=== PATIENT | female | born 1955 | race Caucasian/White ===

== ENCOUNTER 2019-12-02 13:43 | Day surgery (SDC) | payer MEDICARE, BC ==
[2019-11-28 08:27] VITALS: BMI 37.6
[2019-12-02 14:13] VITALS: RESP 16; TEMP 98.3
[2019-12-02] MEDS ORDERED: LIDOCAINE 1% INJ 10MG/ML (20 ML MDV) SQ ONE (14:23)
--- NOTE | 2019-12-02 15:42 | IR ---
PICC LINE PLACEMENT: HISTORY: Infection requiring long-term antibiotic therapy PROCEDURE: Ultrasound and fluoroscopic guidance of PICC line placement. COMPLICATIONS: None ANESTHESIA: 1. 1% Lidocaine locally. FINDINGS/TECHNIQUE: The procedure was explained to the patient. The risks, complications, benefits and alternatives were discussed and any questions were answered. Informed consent was obtained. The patient was placed supine on the fluoroscopic table and prepped and draped in the usual sterile [facility] ion. Utilizing a 21 gauge needle and sonographic and fluoroscopic guidance, access in the vein was achieved and there is placement of a 0.018 guidewire. The vein is patent. A 4-F sheath was placed o holger the guidewire. The guidewire and dilator were removed and a 4-F. PICC line was placed through th e sheath with the tip at the level of the SVC. The sheath was removed, the catheter was flushed and sutured into position. The patient was stable throughout the procedure and remained stable upon disc harge from the Department of Radiology. The vein puncture was patent under ultrasound. A joseph scale image was obtained to document patency of the vein punctured. All elements of the maximal barrier technique were utilized. FLUOROSCOPY TIME: 0.1 minutes and one image submitted IMPRESSION: Successful PICC line placement under ultrasound and fluoroscopic guidance.
[2019-12-02 18:34] VITALS: BP 145/71; PULSE 81
== END 2019-12-02 15:28 | disposition home or self-care (01) ==
LOC: CATHCVL 13:43
PROVIDERS: ATTEND Radiology Diagnostic Radiology
DX: Z45.2 Encounter for adjustment and management of vascular access device (principal); M86.8X4 Other osteomyelitis, hand; S60.429A Blister (nonthermal) of unspecified finger, initial encounter; G43.909 Migraine, unspecified, not intractable, without status migrainosus; F41.9 Anxiety disorder, unspecified; Z86.718 Personal history of other venous thrombosis and embolism; F32.9 Major depressive disorder, single episode, unspecified; E78.5 Hyperlipidemia, unspecified; E03.9 Hypothyroidism, unspecified; Z79.899 Other long term (current) drug therapy; Z79.2 Long term (current) use of antibiotics; X58.XXXA Exposure to other specified factors, initial encounter
CPT/HCPCS: 36573; C1751; C1769; J2001

== ENCOUNTER → 2024-04-15 | Outpatient (CLI) | payer MEDICARE, BC ==
--- NOTE | 2024-04-15 12:59 | XR ---
EXAMINATION TYPE: XR sacroiliac joint comp BILAT DATE OF EXAM: 04/15/2024 12:32 PM CLINICAL INDICATION:Female, 68 years old with history of M46.1 SACROILIITIS, NOT ELSEWHERE CLASSIFIED ; H COMPARISON: None TECHNIQUE: The sacroiliac joints were examined in a frontal and lateral and oblique projections. FINDINGS: There is no evidence of fracture or dislocation. There is no soft tissue abnormality. Dege neration changes of the sacroiliac joints with mild reformation. No abnormal calcifications are prese nt. Multilevel degenerative changes of the lower spine. IMPRESSION: 1. No acute osseous pathology. 2. Mild bilateral sacroiliac joint degeneration.
== END | disposition home or self-care (01) ==
LOC: RADXRMAIN 12:15
PROVIDERS: ATTEND Psychiatry & Neurology Neurology
DX: M53.3 Sacrococcygeal disorders, not elsewhere classified (principal)
CPT/HCPCS: 72202

== ENCOUNTER 2024-07-02 12:08 | Emergency (ER) | payer BC, MEDICARE ==
[2024-07-02 12:23] VITALS: RESP 18
--- NOTE | 2024-07-02 13:07 | ED ---
General Adult HPI - General Chief complaint: Extremity Injury, Lower Stated complaint: hurt tailbone Time Seen by Provider: 07/02/24 12:20 Source: patient, RN notes reviewed, old records reviewed Mode of arrival: ambulatory Limitations: no limitations - History of Present Illness Initial comments: This is a 69-year-old female who presents to the emergency department stating she fell off the bed 1 week ago. Patient states she landed on her tailbone. Patient states she still has pain in the tailbone and her right buttocks. Patient denies any anterior pelvis pain or hip pain. Patient has any other extremity pain or any other issues. Patient denies any numbness or weakness - Related Data Home Medications Medication Instructions Recorded Confirmed Amitriptyline HCl [Elavil] 50 mg PO HS 11/28/19 12/02/19 Aspirin 325 mg PO DAILY PRN 11/28/19 11/28/19 Atorvastatin Calcium [Lipitor] 20 mg PO HS 11/28/19 12/02/19 SUMAtriptan succinate [Imitrex] 100 mg PO DIRECTED PRN 11/28/19 12/02/19 Venlafaxine HCl [Effexor] 225 mg PO DAILY 11/28/19 12/02/19 Previous Rx's Medication Instructions Recorded Ketorolac [Toradol] 10 mg PO Q8HR #15 tab 07/02/24 Allergies Allergy/AdvReac Type Severity Reaction Status Date / Time No Known Allergies Allergy Verified 07/02/24 12:23 Review of Systems ROS Statement: Those systems with pertinent positive or pertinent negative responses have been documented in the HPI. ROS Other: All systems not noted in ROS Statement are negative. Past Medical History Past Medical History: Asthma, Hyperlipidemia, Skin Disorder Additional Past Medical History / Comment(s): migraines, asthma as child, blood clot in arm or leg(not sure which) after shoulder surgery, osteomyalitis left middle finger, eczema, History of Any Multi-Drug Resistant Organisms: None Reported Past Surgical History: Breast Surgery, Orthopedic Surgery Additional Past Surgical History / Comment(s): rt shoulder arthroscopy, ORIF rt ankle, cyst removed from rt breast Past Anesthesia/Blood Transfusion Reactions: No Reported Reaction Past Psychological History: Depression Smoking Status: Former smoker Past Alcohol Use History: None Reported Past Drug Use History: None Reported - Past Family History Mother Family Medical History: No Reported History General Exam - General Exam Comments Initial Comments: GENERAL: Patient is well-developed and well-nourished. Patient is nontoxic and well- hydrated and is in mild distress. ENT: Neck is soft and supple. No significant lymphadenopathy is noted. Oropharynx is clear. Moist mucous membranes. Neck has full range of motion without eliciting any pain. EYES: The sclera were anicteric and conjunctiva were pink and moist. Extraocular movements were intact and pupils were equal round and reactive to light. Eyelids were unremarkable. PULMONARY: Unlabored respirations. Good breath sounds bilaterally. No audible rales rhonchi or wheezing was noted. CARDIOVASCULAR: There is a regular rate and rhythm without any murmurs gallops or rubs. ABDOMEN: Soft and nontender with normal bowel sounds. SKIN: Skin is clear with no lesions or rashes and otherwise unremarkable. NEUROLOGIC: Patient is alert and oriented x3. Cranial nerves II through XII are grossly intact. Motor and sensory are also intact. Normal speech, volume and content. Symmetrical smile. MUSCULOSKELETAL: Normal extremities with adequate strength and full range of motion. Patient has some mild tenderness of the tailbone and right buttocks region. LYMPHATICS: No significant lymphadenopathy is noted PSYCHIATRIC: Normal psychiatric evaluation. Limitations: no limitations Course Vital Signs 07/02/24 12:20 Temperature 98.1 F Pulse Rate 53 L Respiratory 18 Rate Blood Pressure 139/72 O2 Sat by Pulse 96 Oximetry Medical Decision Making - Medical Decision Making Was pt. sent in by a medical professional or institution (, PA, GLOVE BOARDER, urgent care, hospital, or assisted...) When possible be specific @ -No Did you speak to anyone other than the patient for history (EMS, parent, family, police, friend...)? What history was obtained from this source @ -No Did you review nursing and triage notes (agree or disagree)? Why? @ -I reviewed and agree with nursing and triage notes Were old charts reviewed (outside hosp., previous admission, EMS record, old EKG, old radiological studies, urgent care reports/EKG's, assisted records)? Report findings @ -No old charts were reviewed Differential Diagnosis? @ -Differential musculoskeletal EKG interpreted by me (3pts min.). @ -As above X-rays interpreted by me (1pt min.). @ -Lumbosacral spine shows no acute abnormality sacrum coccyx x-ray shows no acute abnormality CT interpreted by me (1pt min.). @ -None done U/S interpreted by me (1pt. min.). @ -None done What testing was considered but not performed or refused? (CT, X-rays, U/S, l abs)? Why? @ -None What meds were considered but not given or refused? Why? @ -None Did you discuss the management of the patient with other professionals (professionals i.e. , PA, GLOVE BOARDER, lab, RT, psych nurse, social services specialist, jewel bearing broacher, teacher, medical scientific officer, case packer and sealer)? Give summary @ -No Was smoking cessation discussed for >3mins.? @ -No Was critical care preformed (if so, how long)? @ -No Were there social determinants of health that impacted care today? How? (Homelessness, low income, unemployed, alcoholism, drug addiction, transportation, low edu. Level, literacy, decrease access to med. care, senior care, rehab)? @ -No Was there de-escalation of care discussed even if they declined (Discuss DNR or withdrawal of care, Hospice)? DNR status @ -No What co-morbidities impacted this encounter? (DM, HTN, Smoking, COPD, CAD, Cancer, CVA, ARF, Chemo, Hep., AIDS, mental health diagnosis, sleep apnea, morbid obesity)? @ -None Was patient admitted / discharged? Hospital course, mention meds given and route, prescriptions, significant lab abnormalities, going to OR and other pertinent info. @ -Patient received a Toradol shot in the emergency department x-rays are normal patient will be discharged home on Toradol and given some Tylenol with codeine for the evening Undiagnosed new problem with uncertain prognosis? @ -No Drug Therapy requiring intensive monitoring for toxicity (Heparin, Nitro, Insulin, Cardizem)? @ -No Were any procedures done? @ -No Diagnosis/symptom? @ -Sciatica Acute, or Chronic, or Acute on Chronic? @ -Default Uncomplicated (without systemic symptoms) or Complicated (systemic symptoms)? @ -Uncomplicated Side effects of treatment? @ -No Exacerbation, Progression, or Severe Exacerbation? @ -No Poses a threat to life or bodily function? How? (Chest pain, [place], [place], pneumonia, PE, COPD, DKA, ARF, appy, cholecystitis, CVA, Diverticulitis, Homicidal, Suicidal, threat to staff... and all critical care pts) @ -No Disposition Clinical Impression: Sciatica Disposition: HOME SELF-CARE Condition: Good Instructions (If sedation given, give patient instructions): Sciatica (ED) Prescriptions: Ketorolac [Toradol] 10 mg PO Q8HR #15 tab Is patient prescribed a controlled substance at d/c from ED?: No Referrals: Vladimir Adan MD [Primary Care Provider] - 1-2 days Time of Disposition: 13:51
[2024-07-02] MEDS: KETOROLAC 15 MG/ML 1 ML VIAL IM STA (13:27)
--- NOTE | 2024-07-02 13:33 | XR ---
EXAM TYPE: LUMBAR SPINE X RAY SERIES COMPARISON: NONE HISTORY: Pain TECHNIQUE: 4 views are submitted. FINDINGS: Alignment is anatomic. The pedicles are intact. The transverse processes are intact. There is mult ilevel moderate to severe degenerative disc disease and facet arthropathy with grade 1 anterolisthesi s L3-L4. Osteopenic changes and scoliotic curvature. IMPRESSION: 1. Multilevel moderate to severe degenerative disc disease. No compression deformities identified.
--- NOTE | 2024-07-02 13:34 | XR ---
EXAMINATION TYPE: XR sacrum coccyx DATE OF EXAM: 07/02/2024 COMPARISON: NONE HISTORY: Pain Three views are submitted. Sacrum is intact. SI joints are symmetric. Coccyx appears to be intact. Visualized pelvic structures intact. Partial sacralization of the lower lumbar segment with degene rative disc disease lower lumbar spine. Sacral struts are intact. There is bilateral SI joint arthrop athy. IMPRESSION: 1. No acute fracture. 2. Bilateral SI joint arthropathy 3. Severe facet arthropathy and degenerative changes lower lumbar spine.
[2024-07-02] MEDS: KETOROLAC 15 MG/ML 1 ML VIAL IVP STA (14:00)
[2024-07-02] MEDS: ACET/COD 300 MG/30 MG STARTER PACK 6 TAB BTL PO STA (14:03)
[2024-07-02 14:09] VITALS: BP 120/55; PULSE 60; TEMP 97.8
== END 2024-07-02 14:16 | disposition home or self-care (01) ==
LOC: EC 12:08
CPT/HCPCS: 72110; 72220; 96372; 99283

== ENCOUNTER 2024-11-05 15:07 | Observation (INO) | payer MEDICARE ==
--- NOTE | 2024-11-05 15:38 | ED ---
SOB HPI - General Source: patient, RN notes reviewed Mode of arrival: ambulatory Limitations: no limitations <Melissa Marte - Last Filed: 11/05/24 15:38> - General Source: patient, RN notes reviewed, old records reviewed Mode of arrival: ambulatory Limitations: no limitations - History of Present Illness MD Complaint: shortness of breath, cough, chest pain, pain with inspiration -: days(s) Severity: moderate Severity scale (1-10): 6 Quality: throbbing, sharp, stabbing Consistency: intermittent Improves With: nothing Worsens With: nothing Context: recent URI, recent illness Associated Symptoms: chest pain, pain with inspiration, cough, sputum production Treatments Prior to Arrival: none <Macho Matias - Last Filed: 11/09/24 21:55> - General Chief Complaint: Shortness of Breath Stated Complaint: SOB, congestion Time Seen by Provider: 11/05/24 15:37 - History of Present Illness Initial Comments: Quick note: 69-year-old female presented to ER for evaluation of sore throat, cough and congestion. She states her symptoms started on . Patient reports she will cough so hard it makes her incontinent. Patient was seen at [facility] last night and diagnosed with a viral illness and started on amoxicillin. Patient endorses shortness of breath and states it feels like there is an elephant on her chest. No radiation of chest discomfort. No known cardiac history. Fever starting today. (Melissa Marte) This is a 69-year-old female to the ER for cough sore throat runny nose congestion recent COVID test was negative. Patient has heaviness of the chest and persistent chest pain with out feeling well shortness of breath (Macho Matias) - Related Data Home Medications Medication Instructions Recorded Confirmed Atorvastatin Calcium [Lipitor] 20 mg PO HS 11/28/19 11/05/24 SUMAtriptan succinate [Imitrex] 100 mg PO BID PRN 11/28/19 11/05/24 Sertraline [Zoloft] 50 mg PO DAILY 11/05/24 11/05/24 Previous Rx's Medication Instructions Recorded Benzonatate [Tessalon Perles] 200 mg PO TID PRN #21 cap 11/08/24 predniSONE [Deltasone] 20 mg PO DIRECTED #9 tab 11/08/24 Allergies Allergy/AdvReac Type Severity Reaction Status Date / Time No Known Allergies Allergy Verified 11/05/24 19:25 Review of Systems ROS Other: All systems not noted in ROS Statement are negative. <Melissa Marte - Last Filed: 11/05/24 15:38> ROS Other: All systems not noted in ROS Statement are negative. <Macho Matias - Last Filed: 11/09/24 21:55> ROS Statement: Those systems with pertinent positive or pertinent negative responses have been documented in the HPI. Past Medical History Past Medical History: Asthma, Hyperlipidemia, Skin Disorder Additional Past Medical History / Comment(s): migraines, asthma as child, blood clot in arm or leg(not sure which) after shoulder surgery, osteomyalitis left middle finger, eczema, History of Any Multi-Drug Resistant Organisms: None Reported Past Surgical History: Breast Surgery, Orthopedic Surgery Additional Past Surgical History / Comment(s): rt shoulder arthroscopy, ORIF rt ankle, cyst removed from rt breast Past Anesthesia/Blood Transfusion Reactions: No Reported Reaction Past Psychological History: Depression Smoking Status: Former smoker Past Alcohol Use History: None Reported Past Drug Use History: None Reported - Past Family History Mother Family Medical History: No Reported History <Melissa Marte - Last Filed: 11/05/24 15:38> General Exam Limitations: no limitations <Melissa Marte - Last Filed: 11/05/24 15:38> General appearance: alert, in no apparent distress Head exam: Present: atraumatic, normocephalic, normal inspection Eye exam: Present: normal appearance, PERRL, EOMI. Absent: scleral icterus, conjunctival injection, periorbital swelling ENT exam: Present: normal exam, mucous membranes moist Neck exam: Present: normal inspection. Absent: tenderness, meningismus, lymphadenopathy Respiratory exam: Present: normal lung sounds bilaterally. Absent: respiratory distress, wheezes, rales, rhonchi, stridor Cardiovascular Exam: Present: regular rate, normal rhythm, normal heart sounds. Absent: systolic murmur, diastolic murmur, rubs, gallop, clicks GI/Abdominal exam: Present: soft, normal bowel sounds. Absent: distended, tend erness, guarding, rebound, rigid Extremities exam: Present: normal inspection, full ROM, normal capillary refill. Absent: tenderness, pedal edema, joint swelling, calf tenderness Back exam: Present: normal inspection Neurological exam: Present: alert, oriented X3, CN II-XII intact Psychiatric exam: Present: normal affect, normal mood Skin exam: Present: warm, dry, intact, normal color. Absent: rash <Macho Matias - Last Filed: 11/09/24 21:55> - General Exam Comments Initial Comments: Visual Physical Exam Vital signs reviewed General: Well-appearing, nontoxic, no acute distress. Head: Normocephalic, atraumatic Eyes: PERRLA, EOMI ENT: Airway patent Chest: Nonlabored breathing Skin: No visual rash, normal skin tone Neuro: Alert and oriented 3 Musculoskeletal: No gross abnormalities (Melissa Marte) Course <Macho Matias - Filed: 11/09/24 21:55> Vital Signs 11/05/24 11/05/24 11/05/24 15:16 17:44 17:56 Temperature 100.7 F H Pulse Rate 90 67 70 Respiratory 20 Rate Blood Pressure 134/76 O2 Sat by Pulse 95 Oximetry 11/05/24 11/05/24 11/05/24 18:29 19:19 20:00 Temperature 98.2 F Pulse Rate 74 64 77 Respiratory 20 18 20 Rate Blood Pressure 127/77 120/59 131/71 O2 Sat by Pulse 98 92 L 93 L Oximetry 11/05/24 11/05/24 11/05/24 20:16 20:31 22:00 Temperature Pulse Rate 64 66 64 Respiratory 20 Rate Blood Pressure 117/57 O2 Sat by Pulse 91 L Oximetry 11/05/24 11/05/24 22:08 23:21 Temperature 97.7 F Pulse Rate 58 L Respiratory 18 Rate Blood Pressure 100/62 O2 Sat by Pulse 95 97 Oximetry - Reevaluation(s) Reevaluation #1: 11/05/24 18:12 Medical records reviewed (Macho Matias) Reevaluation #2: 11/05/24 18:12 Patient states she feels lousy feels terrible does not feel comfortable with discharge (Macho Matias) Reevaluation #3: 11/05/24 18:12 Patient informed of results and questions answered (Macho Matias) Reevaluation #4: Was pt. sent in by a medical professional or institution (, [facility], [employer], urgent care, hospital, or senior living...) When possible be specific @ -no Did you speak to anyone other than the patient for history (EMS, parent, family, police, friend...)? What history was obtained from this source @ -no Did you review nursing and triage notes (agree or disagree)? Why? @ -agree Are old charts reviewed (outside hosp., previous admission, EMS record, old EKG, old radiological studies, urgent care reports/EKG's, senior living records)? Report findings @ -yes Differential Diagnosis (chest pain, altered mental status, abdominal pain women, abdominal pain men, vaginal bleeding, weakness, fever, dyspnea, syncope, headache, dizziness, GI bleed, back pain, seizure, CVA, palpatations, mental health, musculoskeletal)? @ -prior EKG interpreted by me (3pts min.). @ -yes X-rays interpreted by me (1pt min.). @ -yes negative for acute disease CT interpreted by me (1pt min.). @ -no U/S interpreted by me (1pt. min.). @ -no What testing was considered but not performed or refused? (CT, X-rays, U/S, labs)? Why? @ -none What meds were considered but not given or refused? Why? @ -none Did you discuss the management of the patient with other professionals ( professionals i.e. [facility], [employer]IV[employer], lab, RT, psych nurse, social scientist, supervisor [employer]her dietary service, teacher, loss prevention officer, case folder)? Give summary @ -no Was smoking cessation discussed for >3mins.? @ -no Was critical care preformed (if so, how long)? @ -no Were there social determinants of health that impacted care today? How? (Homelessness, low income, unemployed, alcoholism, drug addiction, transportation, low edu. Level, literacy, decrease access to med. care, halfway, rehab)? @ -none Was there de-escalation of care discussed even if they declined (Discuss DNR or withdrawal of care, Hospice)? DNR status @ -no What co-morbidities impacted this encounter? (DM, HTN, Smoking, COPD, CAD, Cancer, CVA, ARF, Chemo, Hep., AIDS, mental health diagnosis, sleep apnea, morbid obesity)? @ -none Was patient admitted / discharged? Hospital course, mention meds given and route, prescriptions, significant lab abnormalities, going to OR and other pertinent info. @ - 69 female will be admitted for RSV patient is positive for RSV with COPD exacerbation here in the ER, symptoms are persistent with shortness of breath and chest pain here will admit for supportive care Admitted Undiagnosed new problem with uncertain prognosis? @ -no Drug Therapy requiring intensive monitoring for toxicity (Heparin, Nitro, Insuli n, Cardizem)? @ -no Were any procedures done? @ -no Diagnosis/symptom? @ -RSV coupled with COPD shortness of breath Acute, or Chronic, or Acute on Chronic? @ -Acute Uncomplicated (without systemic symptoms) or Complicated (systemic symptoms)? @ -Complicated Side effects of treatment? @ -no Exacerbation, Progression, or Severe Exacerbation? @ -exacerbation Poses a threat to life or bodily function? How? (Chest pain, USA, CT, pneumonia, PE, COPD, DKA, ARF, appy, cholecystitis, CVA, Diverticulitis, Homicidal, Suicidal, threat to staff... and all critical care pts) @ -yes extremes of age (Macho Matias) Reevaluation #5: Differential Dyspnea: Coronary syndrome, arrhythmia, tamponade, asthma, COPD, pulmonary embolism, pneumonia, pneumothorax, pulmonary effusion, anaphylaxis, diabetic ketoacidosis, flailed chest, pulmonary contusion, diaphragmatic rupture, anemia, neuromuscular, this is not meant to be an all-inclusive list. Differential Fever: Pneumonia, viral URI, endocarditis, myocarditis, pericarditis, otitis, sinusitis, peritonsillar Abscess, retropharyngeal Abscess, epiglottitis, peritonitis, appendicitis, Johana cystitis, diverticulitis, hepatitis, colitis, UTI, PID, TOA, pyelonephritis, prostatitis, epididymitis, meningitis, encephalitis, pulmonary embolism, CVA, thyroid storm, pancreatitis, adrenal crisis, cavernous sinus thrombosis, this is not meant to be an all-inclusive list. (Macho Matias) - Consultations Consultation #1: Spoke with Dr. Loco crawford to admit (Macho Matias) Medical Decision Making <Melissa Marte - Last Filed: 11/05/24 15:38> - Lab Data Result diagrams: 11/08/24 05:47 11/08/24 05:47 - EKG Data -: EKG Interpreted by Me (EKG is sinus 79 SC 132 QRS 83 QTc 381) - Radiology Data Radiology results: report reviewed (Chest x-ray is negative for acute disease), image reviewed <Macho Matias - Last Filed: 11/09/24 21:55> - Medical Decision Making I performed the quick note portion of this chart. Electronically signed by Melissa Marte PA-C (Melissa Marte) 69 female will be admitted for RSV patient is positive for RSV with COPD exacerbation here in the ER, symptoms are persistent with shortness of breath and chest pain here will admit for supportive care (Macho Matias) - Lab Data Lab Results 11/05/24 11/05/24 11/05/24 Range/Units 15:37 17:20 17:20 WBC 5.5 (3.8-10.6) k/uL RBC 4.36 (3.80-5.40) m/uL Hgb 13.1 (11.4-16.0) gm/dL Hct 40.1 (34.0-46.0) % MCV 92.0 (80.0-100.0) fL MCH 30.1 (25.0-35.0) pg MCHC 32.7 (31.0-37.0) g/dL RDW 13.2 (11.5-15.5) % Plt Count 107 L (150-450) k/uL MPV 8.9 Neutrophils % 63 % Lymphocytes % 15 % Monocytes % 10 % Eosinophils % 7 % Basophils % 0 % Neutrophils # 3.5 (1.3-7.7) k/uL Lymphocytes # 0.9 L (1.0-4.8) k/uL Monocytes # 0.6 (0-1.0) k/uL Eosinophils # 0.4 (0-0.7) k/uL Basophils # 0.0 (0-0.2) k/uL PT 10.2 (10.0-12.5) sec INR 0.9 (<1.2) APTT 24.4 (22.0-30.0) sec Sodium (137-145) mmol/L Potassium (3.5-5.1) mmol/L Chloride (98-107) mmol/L Carbon Dioxide (22-30) mmol/L Anion Gap mmol/L BUN (7-17) mg/dL Creatinine (0.52-1.04) mg/dL Est GFR (CKD-EPI)AfAm (>60 ml/min/1.73 sqM) Est GFR (CKD-EPI)NonAf (>60 ml/min/1.73 sqM) Glucose (74-99) mg/dL Plasma Lactic Acid Yamil (0.7-2.0) mmol/L Calcium (8.4-10.2) mg/dL Magnesium (1.6-2.3) mg/dL Total Bilirubin (0.2-1.3) mg/dL AST (14-36) U/L ALT (4-34) U/L Alkaline Phosphatase (38-126) U/L Troponin I (0.000-0.034) ng/mL NT-Pro-B Natriuret Pep pg/mL Total Protein (6.3-8.2) g/dL Albumin (3.5-5.0) g/dL Influenza Type A (PCR) Not Detected (Not Detectd) Influenza Type B (PCR) Not Detected (Not Detectd) RSV (PCR) Detected A (Not Detectd) SARS-CoV-2 (PCR) Not Detected (Not Detectd) 11/05/24 11/05/24 11/05/24 Range/Units 17:20 17:20 17:20 WBC (3.8-10.6) k/uL RBC (3.80-5.40) m/uL Hgb (11.4-16.0) gm/dL Hct (34.0-46.0) % MCV (80.0-100.0) fL MCH (25.0-35.0) pg MCHC (31.0-37.0) g/dL RDW (11.5-15.5) % Plt Count (150-450) k/uL MPV Neutrophils % % Lymphocytes % % Monocytes % % Eosinophils % % Basophils % % Neutrophils # (1.3-7.7) k/uL Lymphocytes # (1.0-4.8) k/uL Monocytes # (0-1.0) k/uL Eosinophils # (0-0.7) k/uL Basophils # (0-0.2) k/uL PT (10.0-12.5) sec INR (<1.2) APTT (22.0-30.0) sec Sodium 138 (137-145) mmol/L Potassium 4.3 (3.5-5.1) mmol/L Chloride 108 H (98-107) mmol/L Carbon Dioxide 24 (22-30) mmol/L Anion Gap 6 mmol/L BUN 19 H (7-17) mg/dL Creatinine 0.71 (0.52-1.04) mg/dL Est GFR (CKD-EPI)AfAm >90 (>60 ml/min/1.73 sqM) Est GFR (CKD-EPI)NonAf 86 (>60 ml/min/1.73 sqM) Glucose 91 (74-99) mg/dL Plasma Lactic Acid Yamil 0.6 L (0.7-2.0) mmol/L Calcium 8.1 L (8.4-10.2) mg/dL Magnesium 1.8 (1.6-2.3) mg/dL Total Bilirubin 0.2 (0.2-1.3) mg/dL AST 35 (14-36) U/L ALT 25 (4-34) U/L Alkaline Phosphatase 105 (38-126) U/L Troponin I <0.012 (0.000-0.034) ng/mL NT-Pro-B Natriuret Pep 194 pg/mL Total Protein 5.8 L (6.3-8.2) g/dL Albumin 3.3 L (3.5-5.0) g/dL Influenza Type A (PCR) (Not Detectd) Influenza Type B (PCR) (Not Detectd) RSV (PCR) (Not Detectd) SARS-CoV-2 (PCR) (Not Detectd) Disposition <Melissa Marte - Last Filed: 11/05/24 15:38> Is patient prescribed a controlled substance at d/c from ED?: No Time of Disposition: 18:00 <Macho Matias - Last Filed: 11/09/24 21:55> Clinical Impression: Acute exacerbation of chronic obstructive pulmonary disease, RSV (acute bronchiolitis due to respiratory syncytial virus) Disposition: ADMITTED IP TO THIS HOSP Condition: Fair
--- NOTE | 2024-11-05 16:32 | XR ---
EXAMINATION TYPE: XR chest 2V DATE OF EXAM: 11/05/2024 4:27 PM COMPARISON: Chest radiographs from 11/12/2011 CLINICAL INDICATION: Female, 69 years old with history of sob/cough; [facility] TECHNIQUE: XR chest 2V Frontal and lateral views of the chest. FINDINGS: Lungs/Pleura: There is no evidence of pleural effusion, focal consolidation, or pneumothorax. Pulmonary vascularity: Unremarkable. Heart/mediastinum: Cardiomediastinal silhouette is unremarkable. Musculoskeletal: No acute osseous pathology. IMPRESSION: No acute cardiopulmonary disease/process. [facility], , 11/05/2024 4:30 PM
[2024-11-05] MEDS: DEXAMETHASONE SOD PHOSPHATE 10 MG/ML 1 ML VIAL IVP STA (16:42)
[2024-11-05] MEDS: KETOROLAC 15 MG/ML 1 ML VIAL IVP STA (16:43)
[2024-11-05] MEDS: IBUPROFEN 600 MG TAB PO STA (16:43)
[2024-11-05] MEDS: SODIUM CHLORIDE 0.9% 500 ML 500 ML IV STA (16:44)
[2024-11-05] MEDS: SODIUM CHLORIDE 0.9% 1,000 ML IV STA (16:44)
[2024-11-05] MEDS: ACETAMINOPHEN TAB 325 MG TAB PO STA (16:44)
[2024-11-05 17:34] LABS: Basophils % (A) 0 %; Eosinophils # (A) 0.4 k/uL (0-0.7); Eosinophils % (A) 7 %; HCT 40.1 % (34.0-46.0); HGB 13.1 gm/dL (11.4-16.0); Lymphocytes # (A) 0.9 k/uL (1.0-4.8); Lymphocytes % (A) 15 %; MCH 30.1 pg (25.0-35.0); MCHC 32.7 g/dL (31.0-37.0); Mean Platelet Volume 8.9; Monocytes # (A) 0.6 k/uL (0-1.0); Monocytes % (A) 10 %; Neutrophils # (A) 3.5 k/uL (1.3-7.7); Neutrophils % (A) 63 %; Platelet Count 107 k/uL (150-450); RBC 4.36 m/uL (3.80-5.40); RDW 13.2 % (11.5-15.5); WBC 5.5 k/uL (3.8-10.6)
[2024-11-05] MEDS: IPRATROPIUM-ALBUTEROL 3 ML NEB INHALATION STA ×2 (17:42→20:14)
[2024-11-05 17:44] LABS: ALT 25 U/L (4-34); AST 35 U/L (14-36); African American GFR (CKD) >90 (>60 ml/min/1.73 sqM); Albumin 3.3 g/dL (3.5-5.0); Alkaline Phosphatase 105 U/L (38-126); Anion Gap 6 mmol/L; Blood Urea Nitrogen 19 mg/dL (7-17); Calcium 8.1 mg/dL (8.4-10.2); Carbon Dioxide 24 mmol/L (22-30); Chloride 108 mmol/L (98-107); Glucose 91 mg/dL (74-99); Magnesium 1.8 mg/dL (1.6-2.3); Non-African American GFR(CKD) 86 (>60 ml/min/1.73 sqM); Potassium 4.3 mmol/L (3.5-5.1); Sodium 138 mmol/L (137-145); Total Bilirubin 0.2 mg/dL (0.2-1.3); Total Protein 5.8 g/dL (6.3-8.2)
[2024-11-05 17:52] LABS: NT-Pro-B-Type Natriuretic Pept 194 pg/mL
[2024-11-05 17:53] LABS: INR 0.9 (<1.2); Partial Thromboplastin Time 24.4 sec (22.0-30.0); Prothrombin Time 10.2 sec (10.0-12.5)
[2024-11-05] MEDS: ONDANSETRON 4 MG/2 ML VIAL IVP STA (17:54)
[2024-11-05] MEDS ORDERED: ONDANSETRON 4 MG/2 ML VIAL IVP PRN (18:09)
[2024-11-05] MEDS ORDERED: ACETAMINOPHEN TAB 325 MG TAB PO PRN (18:09)
[2024-11-05] MEDS ORDERED: NALOXONE 0.4 MG/ML 1 ML VIAL IV PRN (18:09)
[2024-11-05] MEDS ORDERED: KETOROLAC 15 MG/ML 1 ML VIAL IVP PRN (18:09)
[2024-11-05] MEDS: MORPHINE SULFATE 4 MG/ML SYRINGE IV PRN (18:30)
[2024-11-05] MEDS: SODIUM CHLORIDE 0.9% 1,000 ML IV SCH (19:23)
[2024-11-05 22:39] LABS: Appearance,Urine Clear (Clear); Bilirubin,Urine Negative (Negative); Blood,Urine Trace (Negative); Color,Urine Light Yellow; Glucose,Urine (UA) Negative (Negative); Ketones,Urine Trace (Negative); Leukocyte Esterase,Urine Negative (Negative); Mucus,Urine Rare /hpf; Nitrite,Urine Negative (Negative); PH, Urine 5.5 (5.0-8.0); Protein,Urine Negative (Negative); RBC,Urine 1 /hpf (0-5); Specific Gravity,Urine 1.012 (1.001-1.035); Squamous Epithelial Cell,Urine 1 /hpf (0-4); Urobilinogen,Urine <2.0 mg/dL (<2.0); WBC,Urine 2 /hpf (0-5)
[2024-11-06] MEDS: ALBUTEROL NEBULIZED 2.5 MG/3 ML INHALATION PRN (04:43)
[2024-11-06 08:35] LABS: Basophils # (A) 0.02 X 10*3/uL (0.00-0.10); Basophils % (A) 0.5 %; Eosinophils # (A) 0 X 10*3/uL (0.04-0.35); Eosinophils % (A) 0 %; HCT 38.9 % (37.2-46.3); HGB 12.5 g/dL (12.0-15.0); Lymphocytes # (A) 0.68 X 10*3/uL (0.90-5.00); Lymphocytes % (A) 15.7 %; MCH 29.1 pg (27.0-32.0); MCHC 32.1 g/dL (32.0-37.0); MCV 90.7 FL (80.0-97.0); Mean Platelet Volume 12.3 FL (9.5-12.2); Monocytes # (A) 0.38 X 10*3/uL (0.20-1.00); Monocytes % (A) 8.8 %; NRBC Per 100 WBC 0 X 10*3/uL (0.00-0.01); Neutrophils # (A) 3.24 X 10*3/uL (1.80-7.70); Neutrophils % (A) 74.5 %; Platelet Count 101 X 10*3/uL (140-440); RBC 4.29 X 10*6/uL (4.10-5.20); RDW 13.1 % (11.5-14.5); WBC 4.34 X 10*3/uL (4.50-10.00)
[2024-11-06 08:45] LABS: ALT 23 U/L (8-44); AST 27 U/L (13-35); Albumin 3.4 g/dL (3.8-4.9); Albumin/Globulin Ratio 1.62 Ratio (1.60-3.17); Alkaline Phosphatase 95 U/L (41-126); Blood Urea Nitrogen 18.2 mg/dL (9.0-27.0); Calcium 7.8 mg/dL (8.7-10.3); Carbon Dioxide 21.2 mmol/L (21.6-31.8); Chloride 111 mmol/L (96-109); Globulin 2.1 g/dL (1.6-3.3); Glucose 162 mg/dL (70-110); Magnesium 1.9 mg/dL (1.5-2.4); Phosphorus 3.1 mg/dL (2.4-5.1); Potassium 4.6 mmol/L (3.5-5.5); Sodium 142 mmol/L (135-145); Total Bilirubin <0.2 mg/dL (0.3-1.2); Total Protein 5.5 g/dL (6.2-8.2)
--- NOTE | 2024-11-06 08:47 | P.HPIM ---
History of Present Illness H&P Date: 11/06/24 Chief Complaint: Cough with shortness of breath This is a 69-year-old white female who about 5 days ago started having respiratory congestion. Cough with low-grade fever and pleurisy was noted. Evaluation emergency room did show positive RSV and due to her respiratory dist ress she is appropriately admitted. She has been taking breathing treatments and having better relief. We will probably start some steroid for appropriate relief of her pleurisy. No previous history of RSV no immunization against RSV COVID testing was negative. Review of Systems Eyes: denies blurred vision, denies pain Ears, nose, mouth and throat: Denies headache, Denies sore throat Cardiovascular: Denies chest pain, Denies shortness of breath Respiratory: Reports as per HPI, Reports congestion, Reports cough Gastrointestinal: Denies abdominal pain, Denies diarrhea, Denies nausea, Denies vomiting Past Medical History Past Medical History: Asthma, Hyperlipidemia Additional Past Medical History / Comment(s): Migraines, asthma as child, blood clot in arm or leg(not sure which) after shoulder surgery, osteomyalitis left middle finger, insomnia, Depression History of Any Multi-Drug Resistant Organisms: None Reported Past Surgical History: Breast Surgery, Orthopedic Surgery Additional Past Surgical History / Comment(s): rt shoulder arthroscopy, ORIF rt ankle, cyst removed from rt breast Past Anesthesia/Blood Transfusion Reactions: No Reported Reaction Smoking Status: Former smoker - Past Family History Mother Family Medical History: No Reported History Medications and Allergies Home Medications Medication Instructions Recorded Confirmed Type Atorvastatin Calcium [Lipitor] 20 mg PO HS 11/28/19 11/05/24 History SUMAtriptan succinate [Imitrex] 100 mg PO BID PRN 11/28/19 11/05/24 History Sertraline [Zoloft] 50 mg PO DAILY 11/05/24 11/05/24 History Allergies Allergy/AdvReac Type Severity Reaction Status Date / Time No Known Allergies Allergy Verified 11/05/24 19:25 Physical Exam Vitals: Vital Signs Temp Pulse Pulse Resp BP BP Pulse Ox 11/06/24 04:50 69 11/06/24 04:44 69 11/06/24 02:00 98.2 F 74 17 127/74 97 11/05/24 23:21 97.7 F 58 L 18 100/62 97 11/05/24 22:08 95 11/05/24 22:00 64 20 117/57 91 L 11/05/24 20:31 66 11/05/24 20:16 64 11/05/24 20:00 77 20 131/71 93 L 11/05/24 19:19 98.2 F 64 18 120/59 92 L 11/05/24 18:29 74 20 127/77 98 11/05/24 17:56 70 11/05/24 17:44 67 11/05/24 15:16 100.7 F H 90 20 134/76 95 Intake and Output 11/05/24 11/06/24 11/06/24 22:59 06:59 14:59 Other: # Voids 2 Weight 90.718 kg - Constitutional General appearance: no acute distress - EENT Eyes: EOMI - Neck Neck: no lymphadenopathy - Respiratory Respiratory: bilateral: diminished - Cardiovascular Rhythm: regular Heart sounds: normal: S1, S2 Abnormal Heart Sounds: no S3 Gallop - Gastrointestinal General gastrointestinal: soft - Integumentary Integumentary: no cellulitis - Musculoskeletal Musculoskeletal: gait normal Results CBC & Chem 7: 11/06/24 04:22 11/05/24 17:20 Labs: Abnormal Lab Results - Last 24 Hours (Table) 11/05/24 11/05/24 11/05/24 Range/Units 15:37 17:20 17:20 WBC (4.50-10.00) X 10*3/uL Plt Count 107 L (150-450) k/uL MPV (9.5-12.2) FL Lymphocytes # 0.9 L (1.0-4.8) k/uL Eosinophils # (0.04-0.35) X 10*3/uL Chloride 108 H (98-107) mmol/L BUN 19 H (7-17) mg/dL Plasma Lactic Acid Yamil (0.7-2.0) mmol/L Calcium 8.1 L (8.4-10.2) mg/dL Total Protein 5.8 L (6.3-8.2) g/dL Albumin 3.3 L (3.5-5.0) g/dL Urine Ketones (Negative) Urine Blood (Negative) Urine Mucus (None) /hpf RSV (PCR) Detected A (Not Detectd) 11/05/24 11/05/24 11/06/24 Range/Units 17:20 22:08 04:22 WBC 4.34 L (4.50-10.00) X 10*3/uL Plt Count 101 L (150-450) k/uL MPV 12.3 H (9.5-12.2) FL Lymphocytes # 0.68 L (1.0-4.8) k/uL Eosinophils # 0 L (0.04-0.35) X 10*3/uL Chloride (98-107) mmol/L BUN (7-17) mg/dL Plasma Lactic Acid Yamil 0.6 L (0.7-2.0) mmol/L Calcium (8.4-10.2) mg/dL Total Protein (6.3-8.2) g/dL Albumin (3.5-5.0) g/dL Urine Ketones Trace H (Negative) Urine Blood Trace H (Negative) Urine Mucus Rare H (None) /hpf RSV (PCR) (Not Detectd) Thrombosis Risk Factor Assmnt - Choose All That Apply Any of the Below Risk Factors Present?: Yes Each Factor Represents 1 point: Obesity (BMI >25) Other Risk Factors: Yes Each Risk Factor Represents 2 Points: Age 61-74 years Each Risk Factor Represents 3 Points: History of DVT/PE Thrombosis Risk Factor Assessment Total Risk Factor Score: 6 Thrombosis Risk Factor Assessment Level: High Risk Assessment and Plan (1) Acute exacerbation of chronic obstructive pulmonary disease Current Visit: Yes Status: Acute Code(s): J44.1 - CHRONIC OBSTRUCTIVE PULMONARY DISEASE W (ACUTE) EXACERBATION SNOMED Code(s): 875008106 (2) RSV (acute bronchiolitis due to respiratory syncytial virus) Current Visit: Yes Status: Acute Code(s): J21.0 - ACUTE BRONCHIOLITIS DUE TO RESPIRATORY SYNCYTIAL VIRUS SNOMED Code(s): 440338995 Plan: Continue supportive care oxygen supplementation as needed. Reconcile home medications. Solu-Medrol 40 mg IV every 8. Check CBC and CMP in AM. Anticipate discharge in next 24-48 hours. She is a full code.
[2024-11-06] MEDS: methylPREDNISolone SOD SUCCI 40 MG/ML 1 ML VIAL IV SCH (08:50)
[2024-11-06] MEDS: SERTRALINE 50 MG TAB PO SCH (08:50)
[2024-11-06] MEDS: BENZONATATE 100 MG CAP PO PRN (10:47)
[2024-11-06] MEDS: SUMAtriptan succinate 50 MG TAB PO PRN (16:45)
[2024-11-06] MEDS: ATORVASTATIN 20 MG TAB PO SCH (20:19)
[2024-11-06] MEDS: LORazepam 0.5 MG TAB PO PRN (22:18)
--- NOTE | 2024-11-07 09:00 | P.PN ---
Subjective Progress Note Date: 11/07/24 This is a 69-year-old female who tested positive for RSV on admission. Patient reports about 5 days of respiratory congestion along with cough and low-grade fever. Patient is seen this morning getting a breathing treatment sitting on the side of the bed. She is very anxious. She is on room air. Vitals are stable and patient is tolerating diet. Objective - Vital Signs Vital signs: Vital Signs Temp 98.0 F 11/07/24 07:00 Pulse 68 11/07/24 08:34 Resp 20 11/07/24 07:00 BP 149/76 11/07/24 07:00 Pulse Ox 92 L 11/07/24 08:23 FiO2 Intake & Output 11/06/24 11/07/24 11/07/24 18:59 06:59 18:59 Other: # Voids 1 2 - Constitutional General appearance: Present: cooperative, no acute distress - EENT Eyes: Present: PERRLA - Neck Neck: Present: normal ROM. Absent: lymphadenopathy, rigidity - Respiratory Respiratory: bilateral: rhonchi - Cardiovascular Rhythm: regular Heart sounds: normal: S1, S2 - Gastrointestinal General gastrointestinal: Present: soft. Absent: tenderness - Integumentary Integumentary: Present: normal, normal turgor - Psychiatric Psychiatric: Present: A&O x's 3 - Labs CBC & Chem 7: 11/06/24 04:22 11/06/24 04:22 Assessment and Plan (1) Acute exacerbation of chronic obstructive pulmonary disease Current Visit: Yes Status: Acute Code(s): J44.1 - CHRONIC OBSTRUCTIVE PULMO NARY DISEASE W (ACUTE) EXACERBATION SNOMED Code(s): 120306880 (2) RSV (acute bronchiolitis due to respiratory syncytial virus) Current Visit: Yes Status: Acute Code(s): J21.0 - ACUTE BRONCHIOLITIS DUE TO RESPIRATORY SYNCYTIAL VIRUS SNOMED Code(s): 739343163 Plan: Continue breathing treatments and steroids. Check CBC and CMP in the morning. Anticipate discharge in the next 24 to 48 hours. Patient seen and evaluated by nurse practitioner, physician in agreement with plan.
[2024-11-07 09:17] LABS: HCT 39.7 % (37.2-46.3); HGB 12.7 g/dL (12.0-15.0); MCH 29.2 pg (27.0-32.0); MCV 91.3 FL (80.0-97.0); Mean Platelet Volume 12.9 FL (9.5-12.2); NRBC Per 100 WBC 0 X 10*3/uL (0.00-0.01); Platelet Count 81 X 10*3/uL (140-440); RBC 4.35 X 10*6/uL (4.10-5.20); RDW 13.4 % (11.5-14.5); WBC 5.67 X 10*3/uL (4.50-10.00)
[2024-11-07 11:22] LABS: ALT 27 U/L (8-44); AST 34 U/L (13-35); Albumin 3.6 g/dL (3.8-4.9); Alkaline Phosphatase 90 U/L (41-126); Blood Urea Nitrogen 18.9 mg/dL (9.0-27.0); Calcium 8.2 mg/dL (8.7-10.3); Carbon Dioxide 19.8 mmol/L (21.6-31.8); Chloride 114 mmol/L (96-109); Glucose 150 mg/dL (70-110); Potassium 4.6 mmol/L (3.5-5.5); Sodium 144 mmol/L (135-145); Total Bilirubin <0.2 mg/dL (0.3-1.2); Total Protein 5.6 g/dL (6.2-8.2)
[2024-11-08 07:41] VITALS: BP 143/65; PULSE 52; RESP 16; TEMP 98.2
--- NOTE | 2024-11-08 08:38 | P.DS ---
Providers Date of admission: 11/05/24 18:11 Attending physician: Vladimir Adan Primary care physician: Vladimir Adan - Discharge Diagnosis(es) (1) Acute exacerbation of chronic obstructive pulmonary disease Current Visit: Yes Status: Acute (2) RSV (acute bronchiolitis due to respiratory syncytial virus) Current Visit: Yes Status: Acute Hospital Course: This is a discharge summary 69-year-old white female who essentially admitted for RSV bronchiolitis. The patient had a significant adrián course but was given appropriate breathing treatments and steroids. The patient will be discharged on low-dose prednisone and to follow-up with me in about 7 days. The patient is afebrile tolerating diet but uncomfortable due to the lack that she is not home in her own bed. No voiding difficulties and the patient is tolerating diet. Patient Condition at Discharge: Fair Plan - Discharge Summary Discharge Rx Participant: No New Discharge Prescriptions: New predniSONE [Deltasone] 20 mg PO DIRECTED #9 tab Benzonatate [Tessalon Perles] 200 mg PO TID PRN #21 cap PRN Reason: Cough Continue SUMAtriptan succinate [Imitrex] 100 mg PO BID PRN PRN Reason: Migraine Headache Atorvastatin Calcium [Lipitor] 20 mg PO HS Sertraline [Zoloft] 50 mg PO DAILY Discharge Medication List Atorvastatin Calcium [Lipitor] 20 mg PO HS 11/28/19 [History] SUMAtriptan succinate [Imitrex] 100 mg PO BID PRN 11/28/19 [History] Sertraline [Zoloft] 50 mg PO DAILY 11/05/24 [History] Benzonatate [Tessalon Perles] 200 mg PO TID PRN #21 cap 11/08/24 [Rx] predniSONE [Deltasone] 20 mg PO DIRECTED #9 tab 11/08/24 [Rx] Follow up Appointment(s)/Referral(s): Vladimir Adan MD [Primary Care Provider] - 1 Week Discharge Disposition: HOME SELF-CARE
[2024-11-08 09:01] LABS: ALT 90 U/L (8-44); AST 112 U/L (13-35); Albumin 3.1 g/dL (3.8-4.9); Albumin/Globulin Ratio 1.63 Ratio (1.60-3.17); Alkaline Phosphatase 72 U/L (41-126); Blood Urea Nitrogen 20.1 mg/dL (9.0-27.0); Carbon Dioxide 18.8 mmol/L (21.6-31.8); Chloride 114 mmol/L (96-109); Globulin 1.9 g/dL (1.6-3.3); Glucose 106 mg/dL (70-110); Potassium 3.9 mmol/L (3.5-5.5); Sodium 147 mmol/L (135-145); Total Bilirubin 0.2 mg/dL (0.3-1.2)
[2024-11-08 09:20] LABS: HCT 36.7 % (37.2-46.3); HGB 11.9 g/dL (12.0-15.0); MCH 29.7 pg (27.0-32.0); MCHC 32.4 g/dL (32.0-37.0); MCV 91.5 FL (80.0-97.0); Mean Platelet Volume 13.6 FL (9.5-12.2); NRBC Per 100 WBC 0 X 10*3/uL (0.00-0.01); Platelet Count 95 X 10*3/uL (140-440); RBC 4.01 X 10*6/uL (4.10-5.20); RDW 13.5 % (11.5-14.5); WBC 10.54 X 10*3/uL (4.50-10.00)
== END 2024-11-08 13:38 | disposition home or self-care (01) ==
LOC: EC 15:07 → 6NMEDSUR 18:11
PROVIDERS: ADMIT Family Medicine; ATTEND Family Medicine
DX: J44.1 Chronic obstructive pulmonary disease with (acute) exacerbation (principal); J44.0 Chronic obstructive pulmonary disease with (acute) lower respiratory infection; J21.0 Acute bronchiolitis due to respiratory syncytial virus; E78.5 Hyperlipidemia, unspecified; F32.A Depression, unspecified; Z87.891 Personal history of nicotine dependence; Z79.899 Other long term (current) drug therapy
CPT/HCPCS: 96376 ×3; 96374 ×2; 96361; 96375; 99285; 36415; 94640 ×4; 94760 ×2; 93005; 83880; 80053 ×4; 83605; 83735 ×2; 84100; 84484; 85025 ×2; 85027 ×2; 85610; 85730; 81001; 87636; 71046; G0378 ×4; J2270; J1100; J1885; J2919 ×3

== ENCOUNTER 2025-05-16 09:36 | Emergency (ER) | payer MEDICARE ==
[2025-05-16 09:47] VITALS: TEMP 98.4
[2025-05-16 10:17] LABS: Basophils # (A) 0.08 10*3/uL (0.00-0.10); Basophils % (A) 0.9 %; Eosinophils # (A) 0.48 10*3/uL (0.04-0.35); Eosinophils % (A) 5.7 %; HCT 43.4 % (37.2-46.3); HGB 14.6 g/dL (12.0-15.0); Lymphocytes # (A) 1.53 10*3/uL (0.90-5.00); Lymphocytes % (A) 18.1 %; MCH 30.0 pg (27.0-32.0); MCHC 33.6 g/dL (32.0-37.0); MCV 89.3 fL (80.0-97.0); Monocytes # (A) 0.73 10*3/uL (0.20-1.00); Monocytes % (A) 8.6 %; Neutrophils # (A) 5.62 10*3/uL (1.80-7.70); Neutrophils % (A) 66.5 %; Platelet Count 154 10*3/uL (140-440); RBC 4.86 10*6/uL (4.10-5.20); RDW 12.6 % (11.5-14.5); WBC 8.46 10*3/uL (4.50-10.00)
--- NOTE | 2025-05-16 10:24 | ED ---
Abdominal Pain HPI - General Chief Complaint: Abdominal Pain Stated Complaint: Abd Pain Time Seen by Provider: 05/16/25 10:20 Source: patient, RN notes reviewed Mode of arrival: ambulatory Limitations: no limitations - History of Present Illness Initial Comments: 69-year-old female presented to ER for evaluation of abdominal pain. Patient reports over the past year she has been having intermittent cramping lower abdominal pain. She reports over the past week she has been having worsening and consistent lower abdominal pain. She states the pain feels like a labor contraction and she is currently rating it an 8 out of 10. Patient reports she does have issues with constipation and she has been starting to take Benefiber and drink plenty of fluids. She has not taken any analgesic medications. She denies any nausea, vomiting, fevers, chills, dysuria, hematuria, increase in urinary frequency, diarrhea, abnormal vaginal bleeding or discharge. Patient states that she had has a colonoscopy within the past 5 years which was negative . No prior abdominal surgeries. No history of ulcerative colitis, Crohn's disease or diverticulitis. Patient denies any chest pain, shortness of breath, dizziness or lightheadedness. - Related Data Home Medications Medication Instructions Recorded Confirmed Atorvastatin Calcium [Lipitor] 20 mg PO HS 11/28/19 11/05/24 SUMAtriptan succinate [Imitrex] 100 mg PO BID PRN 11/28/19 11/05/24 Sertraline [Zoloft] 50 mg PO DAILY 11/05/24 11/05/24 Previous Rx's Medication Instructions Recorded Benzonatate [Tessalon Perles] 200 mg PO TID PRN #21 cap 11/08/24 predniSONE [Deltasone] 20 mg PO DIRECTED #9 tab 11/08/24 Amoxic-Pot Clav 875-125Mg 1 tab PO Q12HR #14 tab 05/16/25 [Augmentin 875-125] Allergies Allergy/AdvReac Type Severity Reaction Status Date / Time No Known Allergies Allergy Verified 05/16/25 09:47 Review of Systems ROS Statement: Those systems with pertinent positive or pertinent negative responses have been documented in the HPI. ROS Other: All systems not noted in ROS Statement are negative. Past Medical History Past Medical History: Asthma, Hyperlipidemia Additional Past Medical History / Comment(s): Migraines, asthma as child, blood clot in arm or leg(not sure which) after shoulder surgery, osteomyalitis left middle finger, insomnia, Depression History of Any Multi-Drug Resistant Organisms: None Reported Past Surgical History: Breast Surgery, Orthopedic Surgery Additional Past Surgical History / Comment(s): rt shoulder arthroscopy, ORIF rt ankle, cyst removed from rt breast Past Anesthesia/Blood Transfusion Reactions: No Reported Reaction Past Psychological History: Depression Smoking Status: Former smoker Past Alcohol Use History: None Reported Past Drug Use History: None Reported - Past Family History Mother Family Medical History: No Reported History General Exam Limitations: no limitations General appearance: alert, in no apparent distress Respiratory exam: Present: normal lung sounds bilaterally. Absent: respiratory distress, wheezes, rales, rhonchi, stridor Cardiovascular Exam: Present: regular rate, normal rhythm, normal heart sounds. Absent: systolic murmur, diastolic murmur, rubs, gallop, clicks GI/Abdominal exam: Present: soft, tenderness (LLQ), normal bowel sounds Extremities exam: Present: normal inspection, full ROM, normal capillary refill. Absent: tenderness, pedal edema, joint swelling, calf tenderness Neurological exam: Present: alert, oriented X3, CN II-XII intact Skin exam: Present: warm, dry, intact, normal color. Absent: rash Course Vital Signs 05/16/25 05/16/25 05/16/25 09:45 10:38 11:30 Temperature 98.4 F Pulse Rate 75 62 56 L Respiratory 18 20 18 Rate Blood Pressure 137/80 138/71 129/55 O2 Sat by Pulse 98 96 99 Oximetry 05/16/25 05/16/25 05/16/25 12:00 12:55 13:27 Temperature Pulse Rate 65 66 75 Respiratory 20 16 20 Rate Blood Pressure 117/70 117/90 133/86 O2 Sat by Pulse 98 98 98 Oximetry Medical Decision Making - Medical Decision Making Was pt. sent in by a medical professional or institution (, PA, [employer]IN[employer]INE MECHANIC, urgent care, hospital, or [facility]...) When possible be specific @ -No Did you speak to anyone other than the patient for history (EMS, parent, family, police, friend...)? What history was obtained from this source @ -No Did you review nursing and triage notes (agree or disagree)? Why? @ -I reviewed and agree with nursing and triage notes Were old charts reviewed (outside hosp., previous admission, EMS record, old EKG, old radiological studies, urgent care reports/EKG's, [facility] records)? Report findings @ -No old charts were reviewed Differential Diagnosis (chest pain, altered mental status, abdominal pain women, abdominal pain men, vaginal bleeding, weakness, fever, dyspnea, syncope, h eadache, dizziness, GI bleed, back pain, seizure, CVA, palpatations, mental health, musculoskeletal)? @ -[Differential Abdominal Pain Women:Appendicitis, Cholecystitis, diverticulosis, ischemic bowel, pancreatitis, hepatitis, UTI, gastroenteritis, AAA, incarcerated hernia, bowel obstruction, constipation, inflammatory bowel, hepatitis, peptic ulcer disease, splenic infarction, perforated viscus, vulvitis, ovarian torsion, PID, kidney stone, placenta abruption, this is not meant to be an all-inclusive list EKG interpreted by me (3pts min.). @ -As above X-rays interpreted by me (1pt min.). @ -None done CT interpreted by me (1pt min.). @ -CT abdomen pelvis remarkable for left-sided colonic diverticulosis extending into the sigmoid colon. Either prominent pericolonic vessels versus changes of mild acute diverticulitis at the junction of the descending and sigmoid colon. No abscess or free air. Small hiatal hernia U/S interpreted by me (1pt. min.). @ -None done What testing was considered but not performed or refused? (CT, X-rays, U/S, labs)? Why? @ -None What meds were considered but not given or refused? Why? @ -None Did you discuss the management of the patient with other professionals (professionals i.e. , PA, DIN[employer] ENGINE MECHANIC, lab, RT, psych nurse, social security benefits interviewer, child specialist, teacher, juvenile justice officer, case management associate)? Give summary @ -No Was smoking cessation discussed for >3mins.? @ -No Was critical care preformed (if so, how long)? @ -No Were there social determinants of health that impacted care today? How? (Homelessness, low income, unemployed, alcoholism, drug addiction, tra nsportation, low edu. Level, literacy, decrease access to med. care, custodial, rehab)? @ -No Was there de-escalation of care discussed even if they declined (Discuss DNR or withdrawal of care, Hospice)? DNR status @ -No What co-morbidities impacted this encounter? (DM, HTN, Smoking, COPD, CAD, Cancer, CVA, ARF, Chemo, Hep., AIDS, mental health diagnosis, sleep apnea, morbid obesity)? @ -Asthma, hyperlipidemia Was patient admitted / discharged? Hospital course, mention meds given and route, prescriptions, significant lab abnormalities, going to OR and other pertinent info. @ -[Discharge. 69-year-old female presented to ER for evaluation of lower abdominal pain x 1 week. On arrival vital signs stable. Patient in no signs of acute distress nontoxic-appearing. Laboratory studies obtained remarkable for WBC 8.46. Hemoglobin 14.6. Potassium 5.6 sample is hemolyzed. Urinalysis with 12 WBC's, moderate blood and 7 RBCs. Sample is contaminated with 14 epithelial cells, urine will be sent for culture. Given focal abdominal tenderness CT abdomen pelvis obtained and concerning of mild acute diverticulitis versus prominent pericolonic vessels. There is no abscess or free air. EKG showing sinus bradycardia with a first-degree block. No acute evidence of infarct or ischemia. Symptomatic control in the emergency department along with IV fluids. Upon reevaluation, patient resting comfortably on stretcher no signs of acute distress. Results discussed with patient, all questions answered. Patient will be treated for diverticulitis prescribed Augmentin. Patient also discharged w ith magnesium citrate as she believes she may be constipated. Patient tolerating oral intake. Strict return parameters discussed. Patient discharged in stable condition advised follow-up closely with PCP. I also recommended close follow-up with GI, contact information provided at discharge. Patient verbally expressed understanding agree with care plan. Case discussed with ED attending, Dr. Bryan. Undiagnosed new problem with uncertain prognosis? @ -No Drug Therapy requiring intensive monitoring for toxicity (Heparin, Nitro, Insulin, Cardizem)? @ -No Were any procedures done? @ -No Diagnosis/symptom? @ -Diverticulitis/constipation/abdominal pain Acute, or Chronic, or Acute on Chronic? @ -Acute Uncomplicated (without systemic symptoms) or Complicated (systemic symptoms)? @ -Uncomplicated Side effects of treatment? @ -No Exacerbation, Progression, or Severe Exacerbation? @ -No Poses a threat to life or bodily function? How? (Chest pain, [place], [place], pneumonia, PE, COPD, DKA, ARF, appy, cholecystitis, CVA, Diverticulitis, Homicidal, Suicidal, threat to staff... and all critical care pts) @ -Low at this time - Lab Data Result diagrams: 05/16/25 10:00 05/16/25 10:00 Lab Results 05/16/25 05/16/25 05/16/25 Range/Units 10:00 10:00 10:00 WBC 8.46 (4.50-10.00) 10*3/uL RBC 4.86 (4.10-5.20) 10*6/uL Hgb 14.6 (12.0-15.0) g/dL Hct 43.4 (37.2-46.3) % MCV 89.3 (80.0-97.0) fL MCH 30.0 (27.0-32.0) pg MCHC 33.6 (32.0-37.0) g/dL Plt Count 154 (140-440) 10*3/uL MPV 11.9 (9.5-12.2) fL Immature Gran % (Auto) 0.2 % Neutrophils % 66.5 % Lymphocytes % 18.1 % Monocytes % 8.6 % Eosinophils % 5.7 % Basophils % 0.9 % Immature Gran # 0.02 (0.00-0.04) 10*3/uL Neutrophils # 5.62 (1.80-7.70) 10*3/uL Lymphocytes # 1.53 (0.90-5.00) 10*3/uL Monocytes # 0.73 (0.20-1.00) 10*3/uL Eosinophils # 0.48 H (0.04-0.35) 10*3/uL Basophils # 0.08 (0.00-0.10) 10*3/uL Sodium 140 (137-145) mmol/L Potassium 5.6 H (3.5-5.1) mmol/L Chloride 107 (98-107) mmol/L Carbon Dioxide 26 (22-30) mmol/L Anion Gap 7 mmol/L BUN 25 H (7-17) mg/dL Creatinine 0.76 (0.52-1.04) mg/dL Est GFR (CKD-EPI)AfAm >90 (>60 ml/min/1.73 sqM) Est GFR (CKD-EPI)NonAf 80 (>60 ml/min/1.73 sqM) Glucose 106 H (74-99) mg/dL Plasma Lactic Acid Yamil (0.7-2.0) mmol/L Calcium 9.4 (8.4-10.2) mg/dL Total Bilirubin 0.9 (0.2-1.3) mg/dL AST 46 H (14-36) U/L ALT 23 (4-34) U/L Alkaline Phosphatase 96 (38-126) U/L Total Protein 7.5 (6.3-8.2) g/dL Albumin 4.5 (3.5-5.0) g/dL Amylase 62 (30-110) U/L Lipase 62 (23-300) U/L Urine Color Yellow Urine Appearance Cloudy H (Clear) Urine pH 5.5 (5.0-8.0) Ur Specific [place] 1.022 (1.001-1.035) Urine Protein Trace H (Negative) Urine Glucose (UA) Negative (Negative) Urine Ketones Negative (Negative) Urine Blood Moderate H (Negative) Urine Nitrite Negative (Negative) Urine Bilirubin Negative (Negative) Urine Urobilinogen <2.0 (<2.0) mg/dL Ur Leukocyte Esterase Small H (Negative) Urine RBC 7 H (0-5) /hpf Urine WBC 12 H (0-5) /hpf Ur Squamous Epith Cells 14 H (0-4) /hpf Urine Bacteria Few H (None) /hpf Urine Mucus Few H (None) /hpf / Range/Units 10:00 WBC (4.50-10.00) 10*3/uL RBC (4.10-5.20) 10*6/uL Hgb (12.0-15.0) g/dL Hct (37.2-46.3) % MCV (80.0-97.0) fL MCH (27.0-32.0) pg MCHC (32.0-37.0) g/dL Plt Count (140-440) 10*3/uL MPV (9.5-12.2) fL Immature Gran % (Auto) % Neutrophils % % Lymphocytes % % Monocytes % % Eosinophils % % Basophils % % Immature Gran # (0.00-0.04) 10*3/uL Neutrophils # (1.80-7.70) 10*3/uL Lymphocytes # (0.90-5.00) 10*3/uL Monocytes # (0.20-1.00) 10*3/uL Eosinophils # (0.04-0.35) 10*3/uL Basophils # (0.00-0.10) 10*3/uL Sodium (137-145) mmol/L Potassium (3.5-5.1) mmol/L Chloride (98-107) mmol/L Carbon Dioxide (22-30) mmol/L Anion Gap mmol/L BUN (7-17) mg/dL Creatinine (0.52-1.04) mg/dL Est GFR (CKD-EPI)AfAm (>60 ml/min/1.73 sqM) Est GFR (CKD-EPI)NonAf (>60 ml/min/1.73 sqM) Glucose (74-99) mg/dL Plasma Lactic Acid Yamil 0.9 (0.7-2.0) mmol/L Calcium (8.4-10.2) mg/dL Total Bilirubin (0.2-1.3) mg/dL AST (14-36) U/L ALT (4-34) U/L Alkaline Phosphatase (38-126) U/L Total Protein (6.3-8.2) g/dL Albumin (3.5-5.0) g/dL Amylase (30-110) U/L Lipase (23-300) U/L Urine Color Urine Appearance (Clear) Urine pH (5.0-8.0) Ur Specific [place] (1.001-1.035) Urine Protein (Negative) Urine Glucose (UA) (Negative) Urine Ketones (Negative) Urine Blood (Negative) Urine Nitrite (Negative) Urine Bilirubin (Negative) Urine Urobilinogen (<2.0) mg/dL Ur Leukocyte Esterase (Negative) Urine RBC (0-5) /hpf Urine WBC (0-5) /hpf Ur Squamous Epith Cells (0-4) /hpf Urine Bacteria (None) /hpf Urine Mucus (None) /hpf - EKG Data -: EKG Interpreted by Me EKG Comments: EKG taken 11: 32 showing sinus bradycardia with a first-degree AV block. No ST segment elevations or depressions. No T wave versions. Ventricular rate 55, IL interval 211, QRS ration 72, QT/QTc 391/379. - Radiology Data Radiology results: report reviewed, image reviewed Disposition Clinical Impression: Diverticulitis, Abdominal pain Disposition: HOME SELF-CARE Condition: Stable Instructions (If sedation given, give patient instructions): Diverticulitis (DC), Diverticulitis Diet (ED), Abdominal Pain (ED) Additional Instructions: Follow-up closely with PCP next week for reevaluation. Take antibiotics as prescribed. You may take [id number]-[id number] ibuprofen and Tylenol for pain control. I also recommend owig-npn-[id number] MiraLAX to aid with bowel movements. Return to the ER for any new or worsening concerns. Prescriptions: Amoxic-Pot Clav 875-125Mg [Augmentin 875-125] 1 tab PO Q12HR #14 tab Is patient prescribed a controlled substance at d/c from ED?: No Referrals: Vladimir Adan MD [Primary Care Provider] - 1-2 days Time of Disposition: 13:06
[2025-05-16] MEDS: KETOROLAC 15 MG/ML 1 ML VIAL IVP STA (10:32)
[2025-05-16] MEDS: SODIUM CHLORIDE 0.9% 1,000 ML IV ONE (10:33)
[2025-05-16 10:42] LABS: ALT 23 U/L (4-34); African American GFR (CKD) >90 (>60 ml/min/1.73 sqM); Amylase 62 U/L (30-110); Anion Gap 7 mmol/L; Blood Urea Nitrogen 25 mg/dL (7-17); Calcium 9.4 mg/dL (8.4-10.2); Carbon Dioxide 26 mmol/L (22-30); Chloride 107 mmol/L (98-107); Glucose 106 mg/dL (74-99); Lipase 62 U/L (23-300); Non-African American GFR(CKD) 80 (>60 ml/min/1.73 sqM); Sodium 140 mmol/L (137-145)
[2025-05-16 10:55] LABS: Bacteria,Urine Few /hpf; Bilirubin,Urine Negative (Negative); Blood,Urine Moderate (Negative); Color,Urine Yellow; Glucose,Urine (UA) Negative (Negative); Ketones,Urine Negative (Negative); Leukocyte Esterase,Urine Small (Negative); Mucus,Urine Few /hpf; Nitrite,Urine Negative (Negative); PH, Urine 5.5 (5.0-8.0); Protein,Urine Trace (Negative); RBC,Urine 7 /hpf (0-5); Specific Gravity,Urine 1.022 (1.001-1.035); Squamous Epithelial Cell,Urine 14 /hpf (0-4); Urobilinogen,Urine <2.0 mg/dL (<2.0); WBC,Urine 12 /hpf (0-5)
[2025-05-16 11:07] LABS: AST 46 U/L (14-36); Albumin 4.5 g/dL (3.5-5.0); Alkaline Phosphatase 96 U/L (38-126); Potassium 5.6 mmol/L (3.5-5.1); Total Protein 7.5 g/dL (6.3-8.2)
--- NOTE | 2025-05-16 12:49 | CT ---
EXAMINATION TYPE: CT abdomen pelvis w con DATE OF EXAM: 05/16/2025 12:14 PM COMPARISON: CT abdomen pelvis most recent from CLINICAL INDICATION: Female, 69 years old with history of LLQ PAIN TECHNIQUE: CT of the abdomen and pelvis after IV contrast. Delayed images through the kidneys and cor onal/sagittal reconstructions performed. Contrast used:100 mL of Isovue 300 with IV Contrast, CT DLP: 1380.6 mGycm, Automated exposure control for dose reduction was used. FINDINGS: LOWER CHEST: Unremarkable ABDOMEN LIVER: Unremarkable GALLBLADDER AND BILE DUCTS: Unremarkable. PANCREAS: Unremarkable. SPLEEN: Unremarkable. ADRENAL GLANDS: Unremarkable. KIDNEYS AND URETERS: No evidence of hydronephrosis or renal calculus. The ureters are unremarkable. PELVIS BLADDER: Partially distended. REPRODUCTIVE: Uterus anteverted. Ovaries not well delineated due to adjacent clustered bowel loops. ABDOMEN & PELVIS STOMACH AND BOWEL: Small hiatal hernia. No evidence of bowel obstruction. There is left-sided colonic diverticulosis, extensive in the sigmoid colon. Mild pericolonic stranding along the lower descendin g and proximal sigmoid colon, axial image 49 and 52; equivocal between prominent pericolonic vessels and mild inflammation. PERITONEUM/RETROPERITONEUM: No evidence of pneumoperitoneum or free fluid. VASCULATURE: No evidence of aortic aneurysm. MUSCULOSKELETAL: Multiple moderate degenerative change of the hips. Moderate degenerative disc diseas e L3-L4 and L4-L5. Hypertrophic facet arthropathy with degenerative grade 1 anterolisthesis L3-L4. LYMPH NODES: No gross evidence for lymphadenopathy. SOFT TISSUE/ABDOMINAL WALL: Unremarkable IMPRESSION: 1. Left-sided colonic diverticulosis, extensive in the sigmoid colon. There are either prominent per icolonic vessels versus changes of mild acute diverticulitis at the junction of the descending and si gmoid colon. No abscess or free air. 2. Small hiatal hernia. [facility], , 05/16/2025 12:46 PM
[2025-05-16] MEDS: MAGNESIUM CITRATE 296 ML BOTTLE PO ONE (13:27)
[2025-05-16 13:28] VITALS: BP 133/86; PULSE 75; RESP 20
== END 2025-05-16 13:28 | disposition home or self-care (01) ==
LOC: EC 09:36
DX: K57.32 Diverticulitis of large intestine without perforation or abscess without bleeding (principal); E78.5 Hyperlipidemia, unspecified; J45.909 Unspecified asthma, uncomplicated; Z87.891 Personal history of nicotine dependence
CPT/HCPCS: 36415; 93005; 80053; 82150; 83605; 83690; 85025; 81001; 87086; 87077; 87186; 74177; 99285; 96374; 96361; J1885; Q9967

== ENCOUNTER 2025-05-22 09:16 | Emergency (ER) | payer MEDICARE ==
[2025-05-22 09:26] VITALS: RESP 18
--- NOTE | 2025-05-22 09:59 | ED ---
Abdominal Pain HPI - General Chief Complaint: Abdominal Pain Stated Complaint: abd pain Time Seen by Provider: 05/22/25 09:59 Source: patient, RN notes reviewed, old records reviewed Mode of arrival: ambulatory Limitations: no limitations - History of Present Illness Initial Comments: 69-year-old female presented the ER for evaluation of abdominal pain. Patient was evaluated in emergency department on 05-16-2025 for similar complaint. She was diagnosed with diverticulitis and discharged home on Augmentin. Patient reports her abdominal pain has persisted and worsened over the past 2 days. She reports pain was initially on left lower quadrant but now involves bilateral lower quadrants. She endorses mild nausea but denies any vomiting, fevers, chi lls, diarrhea, constipation, dysuria or increasing urinary frequency. Denies vaginal bleeding or discharge. She has not used any outpatient anagelsic medications. She has been taking antibiotics as prescribed. She denies previous abdominal surgeries. - Related Data Home Medications Medication Instructions Recorded Confirmed Atorvastatin Calcium [Lipitor] 20 mg PO DAILY 11/28/19 05/22/25 SUMAtriptan succinate [Imitrex] 100 mg PO BID PRN 11/28/19 05/22/25 Sertraline [Zoloft] 50 mg PO DAILY 11/05/24 05/22/25 Lotilaner [Xdemvy] 1 drop BOTH EYES BID 05/22/25 05/22/25 Turmeric Root Extract [Turmeric] 500 mg PO DAILY 05/22/25 05/22/25 Previous Rx's Medication Instructions Recorded Amoxic-Pot Clav 875-125Mg 1 tab PO Q12HR #14 tab 05/16/25 [Augmentin 875-125] Dicyclomine [Bentyl] 20 mg PO TID #30 tablet 05/22/25 Ketorolac [Toradol] 10 mg PO Q8HR #15 tab 05/22/25 Ondansetron Odt [Zofran Odt] 4 mg PO Q8HR PRN #10 tab 05/22/25 Allergies Allergy/AdvReac Type Severity Reaction Status Date / Time No Known Allergies Allergy Verified 05/22/25 11:26 Review of Systems ROS Statement: Those systems with pertinent positive or pertinent negative responses have been documented in the HPI. ROS Other: All systems not noted in ROS Statement are negative. Past Medical History Past Medical History: Asthma, Hyperlipidemia Additional Past Medical History / Comment(s): Migraines, asthma as child, blood clot in arm or leg(not sure which) after shoulder surgery, osteomyalitis left middle finger, insomnia, Depression, History of Any Multi-Drug Resistant Organisms: None Reported Past Surgical History: Breast Surgery, Orthopedic Surgery Additional Past Surgical History / Comment(s): rt shoulder arthroscopy, ORIF rt ankle, cyst removed from rt breast Past Anesthesia/Blood Transfusion Reactions: No Reported Reaction Past Psychological History: Anxiety, Depression Smoking Status: Former smoker Past Alcohol Use History: None Reported Past Drug Use History: None Reported - Past Family History Mother Family Medical History: No Reported History General Exam Limitations: no limitations General appearance: alert, in no apparent distress Respiratory exam: Present: normal lung sounds bilaterally. Absent: respiratory distress, wheezes, rales, rhonchi, stridor Cardiovascular Exam: Present: regular rate, normal rhythm, normal heart sounds. Absent: systolic murmur, diastolic murmur, rubs, gallop, clicks GI/Abdominal exam: Present: soft, tenderness (lower abdominal bilateral), normal bowel sounds Extremities exam: Present: normal inspection, full ROM, normal capillary refill. Absent: tenderness, pedal edema, joint swelling, calf tenderness Neurological exam: Present: alert, oriented X3, CN II-XII intact Skin exam: Present: warm, dry, intact, normal color. Absent: rash Course Vital Signs 05/22/25 05/22/25 09:20 14:32 Temperature 98.7 F 98.4 F Pulse Rate 78 76 Respiratory 18 18 Rate Blood Pressure 125/80 127/57 O2 Sat by Pulse 96 96 Oximetry Medical Decision Making - Medical Decision Making Was pt. sent in by a medical professional or institution (, PA, AIRCRAFT ASSEMBLER, urgent care, hospital, or fci...) When possible be specific @ -No Did you speak to anyone other than the patient for history (EMS, parent, family, police, friend...)? What history was obtained from this source @ -Significant other, bedside, aiding in HPI. Did you review nursing and triage notes (agree or disagree)? Why? @ -I reviewed and agree with nursing and triage notes Were old charts reviewed (outside hosp., previous admission, EMS record, old EKG, old radiological studies, urgent care reports/EKG's, fci records)? Report findings @ -ER visit from 05-16-2025 reviewed. Patient evaluated for left lower quadrant abdominal pain. Workup obtained and concerning of findings consistent with uncomplicated diverticulitis for which patient was started on Augmentin and discharged home. Differential Diagnosis (chest pain, altered mental status, abdominal pain women, abdominal pain men, vaginal bleeding, weakness, fever, dyspnea, syncope, headache, dizziness, GI bleed, back pain, seizure, CVA, palpatations, mental health, musculoskeletal)? @ -Differential Abdominal Pain Women:Appendicitis, Cholecystitis, diverticulosis, ischemic bowel, pancreatitis, hepatitis, UTI, gastroenteritis, AAA, incarcerated hernia, bowel obstruction, constipation, inflammatory bowel, hepatitis, peptic ulcer disease, splenic infarction, perforated viscus, vulvitis, ovarian torsion, PID, kidney stone, placenta abruption, this is not meant to be an all-inclusive list EKG interpreted by me (3pts min.). @ -None done X-rays interpreted by me (1pt min.). @ -None done CT interpreted by me (1pt min.). @ -CT abdomen pelvis showing mild inflammatory changes adjacent to the multiple sigmoid diverticuli proximal to mid sigmoid colon. Compatible with mild acute diverticulitis. No underlying abscess or free air. Small hiatal hernia. Normal appendix. U/S interpreted by me (1pt. min.). @ -None done What testing was considered but not performed or refused? (CT, X-rays, U/S, labs)? Why? @ -None What meds were considered but not given or refused? Why? @ -None Did you discuss the management of the patient with other professionals (professionals i.e. , PA, AIRCRAFT ASSEMBLER, lab, RT, psych nurse, dialysis social worker, sleeve sewer, teacher, ordnance officer, caser up)? Give summary @ -No Was smoking cessation discussed for >3mins.? @ -No Was critical care preformed (if so, how long)? @ -No Were there social determinants of health that impacted care today? How? (Homelessness, low income, unemployed, alcoholism, drug addiction, transportation, low edu. Level, literacy, decrease access to med. care, custodial, rehab)? @ -No Was there de-escalation of care discussed even if they declined (Discuss DNR or withdrawal of care, Hospice)? DNR status @ -No What co-morbidities impacted this encounter? (DM, HTN, Smoking, COPD, CAD, Cancer, CVA, ARF, Chemo, Hep., AIDS, mental health diagnosis, sleep apnea, morbid obesity)? @ -None Was patient admitted / discharged? Hospital course, mention meds given and route, prescriptions, significant lab abnormalities, going to OR and other pertinent info. @ -Discharge. 69-year-old female presented the ER for evaluation of abdominal pain. Vital signs stable. Patient no signs of distress nontoxic-appearing. Abdominal exam remarkable for tenderness to palpation to bilateral lower quadrants with normal bowel sounds. No rebound or guarding. No overlying skin changes. Laboratory testing revealed WBC of 10.2. Normal lactic. Urinalysis with 14 epithelial cells and small blood, no infection. Given repeat visit with concern of progression of disease, CT abdomen pelvis obtained with findings consistent with mild acute diverticulitis. No underlying abscess or free air. Normal appendix. Patient provided with symptomatic treatment in the emergency department, with improvement. Upon reevaluation, patient resting comfortably on stretcher no signs of acute distress. Patient educated on today's findings, all questions answered. Admission was considered however patient is requesting discharge. Toradol, Bentyl and Zofran prescribed. Continue Augmentin. Return parameters discussed. Patient discharged in stable condition advised follow-up with PCP and GI for reevaluation. Patient verbally expressed understanding and agreement with care plan. Case discussed with ED attending, Dr. Strickland. Undiagnosed new problem with uncertain prognosis? @ -No Drug Therapy requiring intensive monitoring for toxicity (Heparin, Nitro, Insulin, Cardizem)? @ -No Were any procedures done? @ -No Diagnosis/symptom? @ -Diverticulitis Acute, or Chronic, or Acute on Chronic? @ -Acute Uncomplicated (without systemic symptoms) or Complicated (systemic symptoms)? @ -Uncomplicated Side effects of treatment? @ -No Exacerbation, Progression, or Severe Exacerbation? @ -No Poses a threat to life or bodily function? How? (Chest pain, [place], NE, pneumonia, PE, COPD, DKA, ARF, appy, cholecystitis, CVA, Diverticulitis, Homicidal, Suicidal, threat to staff... and all critical care pts) @ -Low at this time - Lab Data Result diagrams: 05/22/25 10:21 05/22/25 10:21 Lab Results 05/22/25 05/22/25 05/22/25 Range/Units 10:21 10:21 10:21 WBC 10.24 H (4.50-10.00) 10*3/uL RBC 4.93 (4.10-5.20) 10*6/uL Hgb 14.7 (12.0-15.0) g/dL Hct 44.3 (37.2-46.3) % MCV 89.9 (80.0-97.0) fL MCH 29.8 (27.0-32.0) pg MCHC 33.2 (32.0-37.0) g/dL Plt Count 158 (140-440) 10*3/uL MPV 11.2 (9.5-12.2) fL Immature Gran % (Auto) 0.3 % Neutrophils % 75.1 % Lymphocytes % 10.9 % Monocytes % 9.3 % Eosinophils % 3.9 % Basophils % 0.5 % Immature Gran # 0.03 (0.00-0.04) 10*3/uL Neutrophils # 7.69 (1.80-7.70) 10*3/uL Lymphocytes # 1.12 (0.90-5.00) 10*3/uL Monocytes # 0.95 (0.20-1.00) 10*3/uL Eosinophils # 0.40 H (0.04-0.35) 10*3/uL Basophils # 0.05 (0.00-0.10) 10*3/uL Sodium 139 (137-145) mmol/L Potassium 4.6 (3.5-5.1) mmol/L Chloride 102 (98-107) mmol/L Carbon Dioxide 27 (22-30) mmol/L Anion Gap 10 mmol/L BUN 15 (7-17) mg/dL Creatinine 0.79 (0.52-1.04) mg/dL Est GFR (CKD-EPI)AfAm 88 (>60 ml/min/1.73 sqM) Est GFR (CKD-EPI)NonAf 76 (>60 ml/min/1.73 sqM) Glucose 95 (74-99) mg/dL Plasma Lactic Acid Yamil 0.9 (0.7-2.0) mmol/L Calcium 9.6 (8.4-10.2) mg/dL Total Bilirubin 0.7 (0.2-1.3) mg/dL AST 30 (14-36) U/L ALT 18 (4-34) U/L Alkaline Phosphatase 120 (38-126) U/L Total Protein 6.8 (6.3-8.2) g/dL Albumin 4.2 (3.5-5.0) g/dL Lipase 40 (23-300) U/L Urine Color Urine Appearance (Clear) Urine pH (5.0-8.0) Ur Specific [place] (1.001-1.035) Urine Protein (Negative) Urine Glucose (UA) (Negative) Urine Ketones (Negative) Urine Blood (Negative) Urine Nitrite (Negative) Urine Bilirubin (Negative) Urine Urobilinogen (<2.0) mg/dL Ur Leukocyte Esterase (Negative) Urine RBC (0-5) /hpf Urine WBC (0-5) /hpf Ur Squamous Epith Cells (0-4) /hpf Hyaline Casts (0-2) /lpf Urine Mucus (None) /hpf 07/24/25 Range/Units 12:37 WBC (4.50-10.00) 10*3/uL RBC (4.10-5.20) 10*6/uL Hgb (12.0-15.0) g/dL Hct (37.2-46.3) % MCV (80.0-97.0) fL MCH (27.0-32.0) pg MCHC (32.0-37.0) g/dL Plt Count (140-440) 10*3/uL MPV (9.5-12.2) fL Immature Gran % (Auto) % Neutrophils % % Lymphocytes % % Monocytes % % Eosinophils % % Basophils % % Immature Gran # (0.00-0.04) 10*3/uL Neutrophils # (1.80-7.70) 10*3/uL Lymphocytes # (0.90-5.00) 10*3/uL Monocytes # (0.20-1.00) 10*3/uL Eosinophils # (0.04-0.35) 10*3/uL Basophils # (0.00-0.10) 10*3/uL Sodium (137-145) mmol/L Potassium (3.5-5.1) mmol/L Chloride (98-107) mmol/L Carbon Dioxide (22-30) mmol/L Anion Gap mmol/L BUN (7-17) mg/dL Creatinine (0.52-1.04) mg/dL Est GFR (CKD-EPI)AfAm (>60 ml/min/1.73 sqM) Est GFR (CKD-EPI)NonAf (>60 ml/min/1.73 sqM) Glucose (74-99) mg/dL Plasma Lactic Acid Yamil (0.7-2.0) mmol/L Calcium (8.4-10.2) mg/dL Total Bilirubin (0.2-1.3) mg/dL AST (14-36) U/L ALT (4-34) U/L Alkaline Phosphatase (38-126) U/L Total Protein (6.3-8.2) g/dL Albumin (3.5-5.0) g/dL Lipase (23-300) U/L Urine Color Light Yellow Urine Appearance Clear (Clear) Urine pH 6.0 (5.0-8.0) Ur Specific [place] >1.050 H (1.001-1.035) Urine Protein Negative (Negative) Urine Glucose (UA) Negative (Negative) Urine Ketones Negative (Negative) Urine Blood Small H (Negative) Urine Nitrite Negative (Negative) Urine Bilirubin Negative (Negative) Urine Urobilinogen <2.0 (<2.0) mg/dL Ur Leukocyte Esterase Negative (Negative) Urine RBC 5 (0-5) /hpf Urine WBC 1 (0-5) /hpf Ur Squamous Epith Cells 14 H (0-4) /hpf Hyaline Casts 1 (0-2) /lpf Urine Mucus Rare H (None) /hpf - Radiology Data Radiology results: report reviewed, image reviewed Disposition Clinical Impression: Diverticulitis Disposition: HOME SELF-CARE Condition: Stable Instructions (If sedation given, give patient instructions): Diverticulitis (DC) Additional Instructions: Follow-up close with PCP. Return to the ER for any new or worsening symptoms. Prescriptions: Dicyclomine [Bentyl] 20 mg PO TID #30 tablet Ketorolac [Toradol] 10 mg PO Q8HR #15 tab Ondansetron Odt [Zofran Odt] 4 mg PO Q8HR PRN #10 tab PRN Reason: Nausea Is patient prescribed a controlled substance at d/c from ED?: No Referrals: Vladimir Adan MD [Primary Care Provider] - 1-2 days Time of Disposition: 14:05
[2025-05-22] MEDS: SODIUM CHLORIDE 0.9% 1,000 ML IV ONE (10:15)
[2025-05-22] MEDS: KETOROLAC 15 MG/ML 1 ML VIAL IVP STA (10:16)
[2025-05-22] MEDS: PANTOPRAZOLE 40 MG/10 ML VIAL IVP STA (10:18)
[2025-05-22 10:35] LABS: Basophils # (A) 0.05 10*3/uL (0.00-0.10); Basophils % (A) 0.5 %; Eosinophils # (A) 0.40 10*3/uL (0.04-0.35); Eosinophils % (A) 3.9 %; HCT 44.3 % (37.2-46.3); HGB 14.7 g/dL (12.0-15.0); Lymphocytes # (A) 1.12 10*3/uL (0.90-5.00); Lymphocytes % (A) 10.9 %; MCH 29.8 pg (27.0-32.0); MCHC 33.2 g/dL (32.0-37.0); MCV 89.9 fL (80.0-97.0); Monocytes # (A) 0.95 10*3/uL (0.20-1.00); Monocytes % (A) 9.3 %; Neutrophils # (A) 7.69 10*3/uL (1.80-7.70); Neutrophils % (A) 75.1 %; Platelet Count 158 10*3/uL (140-440); RBC 4.93 10*6/uL (4.10-5.20); RDW 12.4 % (11.5-14.5); WBC 10.24 10*3/uL (4.50-10.00)
[2025-05-22 10:47] LABS: ALT 18 U/L (4-34); AST 30 U/L (14-36); African American GFR (CKD) 88 (>60 ml/min/1.73 sqM); Albumin 4.2 g/dL (3.5-5.0); Alkaline Phosphatase 120 U/L (38-126); Anion Gap 10 mmol/L; Blood Urea Nitrogen 15 mg/dL (7-17); Calcium 9.6 mg/dL (8.4-10.2); Carbon Dioxide 27 mmol/L (22-30); Chloride 102 mmol/L (98-107); Glucose 95 mg/dL (74-99); Lipase 40 U/L (23-300); Non-African American GFR(CKD) 76 (>60 ml/min/1.73 sqM); Potassium 4.6 mmol/L (3.5-5.1); Sodium 139 mmol/L (137-145); Total Protein 6.8 g/dL (6.3-8.2)
--- NOTE | 2025-05-22 13:16 | CT ---
EXAMINATION TYPE: CT abdomen pelvis w con DATE OF EXAM: 05/22/2025 12:12 PM COMPARISON: 05/16/2025 CLINICAL INDICATION: Female, 69 years old with history of bilateral lower abd pain hx diverticulitis, Bilateral lower abdominal pain history of diverticulitis TECHNIQUE: Axial images were obtained from above the diaphragm to the pubic rami in the axial plane a t 5 mm thick sections. Reconstructed images are reviewed on the computer in the coronal plane. CONTRAST: 100 ml mL of Isovue 300. Study performed without Oral Contrast DLP: 1151.3 mGycm, Automated exposure control for dose reduction was used. FINDINGS: Limited CT sections are obtained the lung bases. The lung bases are clear. There is a small hiatal hernia present. CT ABDOMEN: Liver: Normal Spleen: Normal Pancreas: Normal Adrenal glands: The adrenal glands are normal. Gallbladder: Normal Kidneys: No masses are evident. No hydronephrosis is present. No cysts are present. Delayed images were obtained through the kidneys, which remain unremarkable. Aorta: Vascular calcification is within the aorta. Inferior vena cava: Normal. CT PELVIS: There is subtle inflammatory change within the fat adjacent to the superior proximal sigmoid colon. M ultiple diverticula are present. Findings could be compatible with mild diverticulitis. No underlying abscess is evident. No free air is evident This study is without oral contrast limiting bowel evalua tion Appendix: Normal as visualized. No dilated tubular structure or inflammatory changes are evident. Urinary bladder: Normal. Somewhat limited as this is partially decompressed. Genitourinary structures: Uterus and adnexa appear normal. Osseous structures: No suspicious lytic or sclerotic lesions. IMPRESSION: 1. Mild inflammatory changes adjacent to multiple sigmoid diverticuli proximal to mid sigmoid colon. Findings can be compatible with mild acute diverticulitis. 2. Small hiatal hernia [facility], , 05/22/2025 1:14 PM
[2025-05-22 13:23] LABS: Bilirubin,Urine Negative (Negative); Blood,Urine Small (Negative); Color,Urine Light Yellow; Glucose,Urine (UA) Negative (Negative); Hyaline Casts,Urine 1 /lpf (0-2); Ketones,Urine Negative (Negative); Leukocyte Esterase,Urine Negative (Negative); Mucus,Urine Rare /hpf; Nitrite,Urine Negative (Negative); PH, Urine 6.0 (5.0-8.0); Protein,Urine Negative (Negative); RBC,Urine 5 /hpf (0-5); Squamous Epithelial Cell,Urine 14 /hpf (0-4); Urobilinogen,Urine <2.0 mg/dL (<2.0); WBC,Urine 1 /hpf (0-5)
[2025-05-22 13:44] LABS: Specific Gravity,Urine >1.050 (1.001-1.035)
[2025-05-22 14:33] VITALS: BP 127/57; PULSE 76; TEMP 98.4
== END 2025-05-22 14:34 | disposition home or self-care (01) ==
LOC: EC 09:16
CPT/HCPCS: 36415; 74177; 80053; 81001; 83605; 83690; 85025; 96361; 96374; 96375; 99285